=== PATIENT | female | born 1965 ===

== ENCOUNTER 2017-01-24 18:44 | Emergency (ER) | payer BC ==
[2017-01-24 18:55] VITALS: BP 159/88; PULSE 84; RESP 16; TEMP 98.3; O2SAT 98
[2017-01-24] MEDS ORDERED: Amoxicillin-Clav 875-125 mg Tab PO STA (19:02)
--- NOTE | 2017-01-24 19:08 | C.PDOC ---
History Of Present Illness 51 year old female presents to the ED with complaints of sore throat, congestion , frontal headache, and dry cough for three weeks. Patient states she went to see her PMD and was told symptoms were due to allergies and given flonase and is taking Mucinex DM for symptoms with little relief. She denies any vomiting, diarrhea, or fever. Time Seen by Provider: 01/24/17 18:57 Chief Complaint (Nursing): Cough, Cold, Congestion History Per: Patient History/Exam Limitations: no limitations Onset/Duration Of Symptoms: Persistent (3 weeks ) Location Of Pain: Throat (sore throat ), Headache (frontal headache ) Associated Symptoms: Sore Throat, Cough, Nasal Congestion. denies: Fever, Chills, Nausea, Vomiting, Diarrhea Recent travel outside of the [place]: No Past Medical History Reviewed: Historical Data, Nursing Documentation, Vital Signs Vital Signs: Last Vital Signs Temp 98.3 F 01/24/17 18:53 Pulse 84 01/24/17 18:53 Resp 16 01/24/17 18:53 BP 159/88 H 01/24/17 18:53 Pulse Ox 98 01/24/17 19:12 Family History: States: Unknown Family Hx - Social History Hx Alcohol Use: No Hx Substance Use: No - Immunization History Hx Tetanus Toxoid Vaccination: No Hx Influenza Vaccination: No Hx Pneumococcal Vaccination: No Review Of Systems Constitutional: Negative for: Fever, Chills, Sweats ENT: Positive for: Other (congestion and sore throat ) Cardiovascular: Negative for: Chest Pain, Palpitations Respiratory: Positive for: Cough. Negative for: Shortness of Breath Gastrointestinal: Negative for: Nausea, Vomiting, Abdominal Pain, Diarrhea Neurological: Positive for: Headache (frontal headache ) Physical Exam - Physical Exam Appears: Non-toxic, No Acute Distress Skin: Warm, Dry Head: Atraumatic Ear(s): Bilateral: Normal Nose: No Discharge, No Tenderness, Other (nasal congestion ) Oral Mucosa: Moist Throat: Normal, No Erythema, No Exudate Neck: Supple Cardiovascular: Rhythm Regular Respiratory: No Rales, No Rhonchi, No Stridor, No Wheezing Extremity: Normal ROM, No Tenderness Neurological/Psych: Oriented x3 ED Course And Treatment O2 Sat by Pulse Oximetry: 98 (room air ) Medical Decision Making Medical Decision Making: Patient was prescribed Augmentin Disposition Counseled Patient/Family Regarding: Diagnosis, Need For Followup, Rx Given - Disposition Disposition: HOME/ ROUTINE Disposition Time: 19:25 Condition: GOOD Additional Instructions: Buena los medicamentos adilene indicado. Volver a la garfield de emergencia en cualquier momento si los sntomas persisten o empeoran. Prescriptions: Amoxicillin/Clavulanate [Augmentin 875 MG-125 MG] 1 tab PO BID #14 tab Instructions: Sinusitis (ED) Print Language: MOH[place] - POA Present On Arrival: None - Clinical Impression Clinical Impression: Sinusitis - Scribe Statement The provider has reviewed the documentation as recorded by the Scribe Kathy Kay All medical record entries made by the Scribe were at my direction and personally dictated by me. I have reviewed the chart and agree that the record accurately reflects my personal performance of the history, physical exam, medical decision making, and the department course for this patient. I have also personally directed, reviewed, and agree with the discharge instructions and disposition.
[2017-01-24] MEDS ORDERED: Amoxicillin-Clav 875-125 mg Tab PO ONE (19:10)
== END 2017-01-24 19:27 | disposition home or self-care (01) ==
LOC: C.ER 18:44
DX: J32.9 Chronic sinusitis, unspecified (principal)